=== PATIENT | male | born 1970 | race African-American/Black ===

== ENCOUNTER 2019-05-11 20:47 | Inpatient (IN) | payer MEDICAID ==
[~2019-05-11] VITALS: Ht 182.9 cm; Wt 63.7 kg
[2019-05-12] MEDS ORDERED: SODIUM CHLORIDE 0.9% 1,000 ML IV ONE (03:35)
[2019-05-12] MEDS ORDERED: MAGNESIUM/ALUMINUM HYDROXIDE/SIMETHICONE 30ML UDC PO STA (03:35)
[2019-05-12] MEDS ORDERED: FAMOTIDINE 20MG/2ML VIAL IV STA (03:35)
[2019-05-12] MEDS ORDERED: VISCOUS LIDOCAINE 2% 15 ML UDC PO STA (03:35)
[2019-05-12] MEDS ORDERED: ONDANSETRON HCL 4MG/2ML INJ IV STA (03:35)
[2019-05-12 04:21] LABS: HEMATOCRIT. 37.3 % (42.0-52.0); HEMOGLOBIN. 12.7 g/dL (14.0-18.0); MEAN CORPUSCULAR HEMOGLOBIN 30.4 pg (28.0-32.0); MEAN PLATELET VOLUME 8.8 fl (7.4-10.4); PLATELET 213 x1000/uL (130-400); RED BLOOD CELL COUNT 4.19 mill/uL (4.7-6.1); RED CELL DISTRIBUTION WIDTH 14.8 % (11.6-14.6)
[2019-05-12 04:22] LABS: CHLORIDE 95 mEq/L (98-107)
[2019-05-12 04:25] LABS: INR 1.1; PROTHROMBIN TIME 10.9 sec (9.6-11.0)
[2019-05-12 04:26] LABS: ETHANOL BLOOD 17 mg/dL
[2019-05-12 04:30] LABS: *AMPHETAMINES SCREEN URINE NEGATIVE (NEGATIVE); *BARBITURATES SCREEN URINE NEGATIVE (NEGATIVE); *BENZODIAZEPINES SCREEN URINE NEGATIVE (NEGATIVE); *COCAINE SCREEN URINE NEGATIVE (NEGATIVE)
[2019-05-12 04:31] LABS: METHADONE URINE SCREEN NEGATIVE (NEGATIVE); OPIATES URINE SCREEN NEGATIVE (NEGATIVE)
[2019-05-12 04:32] LABS: CANNABINOID URINE SCREEN NEGATIVE (NEGATIVE); PHENCYCLIDINE URINE SCREEN NEGATIVE (NEGATIVE)
[2019-05-12] MEDS ORDERED: LORAZEPAM 1MG TABLET PO ONE (05:45)
[2019-05-12 06:27] LABS: HEPATITIS B SURFACE ANTIGEN NEGATIVE
[2019-05-12 06:50] LABS: PLATELET ESTIMATE NORMAL
[2019-05-12 06:56] LABS: HEPATITIS A AB IGM NEGATIVE (NEGATIVE)
[2019-05-12] MEDS ORDERED: ONDANSETRON HCL 4MG/2ML INJ IV PRN (14:00)
[2019-05-12] MEDS ORDERED: NITROGLYCERIN 0.4MG TABLET SL SL PRN (14:00)
[2019-05-12] MEDS ORDERED: LORAZEPAM 0.5MG TABLET PO PRN (14:00)
[2019-05-12] MEDS ORDERED: ACETAMINOPHEN 325MG TABLET PO PRN (14:00)
[2019-05-12] MEDS ORDERED: GUAIFENESIN 200MG/10ML SUGAR FREE UDC PO PRN (14:00)
[2019-05-12] MEDS ORDERED: IPRATROPIUM/ALBUTEROL 0.5-3(2.5)MG/3ML NEB HHN PRN (14:00)
[2019-05-12] MEDS ORDERED: MAGNESIUM/ALUMINUM HYDROXIDE/SIMETHICONE 30ML UDC PO PRN (14:00)
[2019-05-12] MEDS ORDERED: KETOROLAC 15MG/ML VIAL IV PRN (14:00)
[2019-05-12] MEDS ORDERED: DOCUSATE SODIUM 100MG CAPSULE PO PRN (14:00)
[2019-05-12] MEDS ORDERED: CLONIDINE 0.1MG TABLET PO PRN (14:00)
[2019-05-12] MEDS ORDERED: CHLORDIAZEPOXIDE 5 MG CAPSULE PO NR (14:45)
[2019-05-12] MEDS ORDERED: MVI, ADULT NO.1 10 ML, FOLIC ACID 1 MG, THIAMINE HCL 100 MG in SODIUM CHLORIDE 0.9% 1,0... IV SCH ×4 (15:00)
[2019-05-12 23:15] VITALS: BP 151/106
[2019-05-12] MEDS: FAMOTIDINE 20MG TABLET PO SCH (23:42)
[2019-05-12] MEDS: CHLORDIAZEPOXIDE 5 MG CAPSULE PO SCH (23:43)
[2019-05-13] VITALS: BP 154/104
[2019-05-13 04:10] VITALS: BP 101/72
[2019-05-13] MEDS: SUCRALFATE 1 G/10 ML UDC PO SCH ×2 (06:24→13:47)
[2019-05-13 06:50] LABS: CHLORIDE 101 mEq/L (98-107)
[2019-05-13 08:06] VITALS: BP 112/77
[2019-05-13] MEDS: CHLORDIAZEPOXIDE 5 MG CAPSULE PO SCH (08:49)
[2019-05-13] MEDS: FAMOTIDINE 20MG TABLET PO SCH (08:49)
[2019-05-13 12:28] VITALS: BP 123/93
[2019-05-13 16:27] VITALS: BP 107/77
[2019-05-13 16:36] VITALS: BP 107/77
== END 2019-05-13 17:26 | disposition home or self-care (01) | DRG 426 ==
LOC: ER 20:47 → 6WST 05-12 06:36 → EDBEDREQSVC 05-12 06:48 → EDBEDREQTM 05-12 06:48 → EDBEDREQ 05-12 06:48 → ENRESERV 05-12 21:36
PROVIDERS: ADMIT Internal Medicine; ATTEND Internal Medicine
DX: E87.1 Hypo-osmolality and hyponatremia (principal); K72.00 Acute and subacute hepatic failure without coma; D63.8 Anemia in other chronic diseases classified elsewhere; F10.239 Alcohol dependence with withdrawal, unspecified; R74.0 Nonspecific elevation of levels of transaminase and lactic acid dehydrogenase [LDH]
CPT/HCPCS: 36415; 71045; 80305; 80320; 83036; 86705; 86709; 86803; 87340; 93005; 97161; 97165; 99285; J2405; J3411; J3490; J7030; G0480